=== PATIENT | female | born 1965 | race African-American/Black ===

== ENCOUNTER 2018-10-25 16:17 | Emergency (ER) | payer MEDICAID ==
[~2018-10-25] VITALS: Ht 175.3 cm; Wt 113.0 kg
[~2018-10-25 16:17] MED LIST: FERR-43; GLIP5TAB3; METF-414
[2018-10-25] MEDS ORDERED: MORPHINE SULFATE 10 MG/ML CPJ IV ONE (16:45)
[2018-10-25] MEDS ORDERED: KETOROLAC 60MG/2ML VIAL IM ONE (16:45)
[2018-10-25 18:55] VITALS: BP 154/88
== END 2018-10-25 19:00 | disposition home or self-care (01) ==
LOC: ER 16:17
DX: R09.89 Other specified symptoms and signs involving the circulatory and respiratory systems (principal); J02.9 Acute pharyngitis, unspecified; I10 Essential (primary) hypertension; E11.9 Type 2 diabetes mellitus without complications; Z98.890 Other specified postprocedural states; Z88.5 Allergy status to narcotic agent; Z79.84 Long term (current) use of oral hypoglycemic drugs
CPT/HCPCS: 70360; 87070; 87430; 96372; 96374; 99284; J1885; J2270